=== PATIENT | female | born 1985 | race Caucasian/White ===

== ENCOUNTER 2019-11-23 10:14 | Inpatient (IN) | payer OTHER ==
--- NOTE | 2019-11-23 10:49 | BHS.RME ---
Substance Use & Tx History - Substance Use History Heroin Substance amount: 15 bags Frequency of use: Daily Substance route: Injection (ex: intravenous or skin popping) Date of Last Use: 11/22/19 - Last Treatment Date of last treatment: No detox hx Physical/Psych/Mental Status - Behavior General Behavior: Increased activity (restlessness, agitation) Eye Contact: Normal Other Behaviors: Mannerisms - Cooperativeness Cooperativeness: Cooperative - Thinking Thought Processes: Tight, Logical, Goal Directed Thought content: Future oriented - Physical Health Problems Is patient presently having any pain?: Yes Does patient presently have any injuries (include location): No Does patient currently have a fever: No Is patient : No COWS - Scale Resting Pulse: 0= [place] 80 or Below Sweatin= Chills/Flushing Restless Observation: 1= Difficult to Sit Still Pupil Size: 1= Pupils >than Normal Bone or Joint Aches: 1= Mild Discomfort Runny Nose/ Eye Tearin= Nasal Congestion GI Upset > 30mins: 1= Stomach Cramp Tremor Observation: 2= Slight Tremor Visible Yawning Observation: 0= None Anxiety or Irritability: 1=Feels Anxious/Irritable Goose Flesh Skin: 3=Piloerection COWS Score: 12
[2019-11-23] MEDS ORDERED: PNEUMOC 13-VAL CONJ-DIP CRM/PF 0.5 ML DISP.SYRIN IM ONE (11:02)
[2019-11-23 11:06] VITALS: BMI 43.2
--- NOTE | 2019-11-23 11:18 | HP ---
COWS - Scale Resting Pulse: 0= [place] 80 or Below Sweatin= Chills/Flushing Restless Observation: 1= Difficult to Sit Still Pupil Size: 1= Pupils >than Normal Bone or Joint Aches: 1= Mild Discomfort Runny Nose/ Eye Tearin= Nasal Congestion GI Upset > 30mins: 1= Stomach Cramp Tremor Observation: 2= Slight Tremor Visible Yawning Observation: 0= None Anxiety or Irritability: 1=Feels Anxious/Irritable Goose Flesh Skin: 3=Piloerection COWS Score: 12 CIWA Score - Admission Criteria [facility] Guidelines: Admission for Medically Managed Detox: Requires at least one of the followin. CIWA greater than 12 2. Seizures within the past 24 hours 3. Delirium tremens within the past 24 hours 4. Hallucinations within the past 24 hours 5. Acute intervention needed for co occurring medical disorder 6. Acute intervention needed for co occurring psychiatric disorder 7. Severe withdrawal that cannot be handled at a lower level of care (continued vomiting, continued diarrhea, abnormal vital signs) requiring intravenous medication and/or fluids 8. Admitting History and Physical - Smoking History Smoking history: Current every day smoker Have you smoked in the past 12 months: Yes Aproximately how many cigarettes per day: 20 Admission ROS [facility] Chief Complaint: I am here because I need detox from heroin. Allergies/Adverse Reactions: Allergies Allergy/AdvReac Type Severity Reaction Status Date / Time Penicillins Allergy Intermediate Rash Verified 11/23/19 11:16 History of Present Illness: Patient is a 34 yeart old woman who presents for detox from alcohol, this is her first time in detox. She reports overdose 2 years ago. Exam Limitations: No Limitations - Ebola screening Have you traveled outside of the country in the last 21 days: No Have you had contact with anyone from an Ebola affected area: No Have you been sick,other than usual withdrawal symptoms: No Do you have a fever: No - Review of Systems Constitutional: Chills, Loss of Appetite, Changes in sleep, Weight Stable EENT: reports: Nose Congestion Respiratory: reports: No Symptoms reported Cardiac: reports: No Symptoms Reported GI: reports: Nausea, Poor Appetite, Poor Fluid Intake : reports: No Symptoms Reported Musculoskeletal: reports: Back Pain, Muscle Pain, Muscle Weakness Integumentary: reports: No Symptoms Reported Neuro: reports: Tremors Endocrine: reports: No Symptoms Reported Psychiatric: reports: Anxious Other Systems: Reviewed and Negative Patient History - Patient Medical History Hx Anemia: No Hx Asthma: No Hx Chronic Obstructive Pulmonary Disease (COPD): No Hx Cancer: No Hx Cardiac Disorders: No Hx Congestive Heart Failure: No Hx Hypertension: No Hx Hypercholesterolemia: Yes (not on meds) Hx Pacemaker: No HX Cerebrovascular Accident: No Hx Seizures: No Hx Dementia: No Hx Diabetes: No Hx Gastrointestinal Disorders: No Hx Liver Disease: No Hx Genitourinary Disorders: No Hx Sexually Transmitted Disorders: No Hx Renal Disease (ESRD): No Hx Thyroid Disease: No Hx Human Immunodeficiency Virus (HIV): No Hx Hepatitis C: No Hx Depression: No Hx Suicide Attempt: No Hx Bipolar Disorder: No Hx Schizophrenia: No - Patient Surgical History Past Surgical History: Yes Hx Neurologic Surgery: No Hx Cataract Extraction: No Hx Cardiac Surgery: No Hx Lung Surgery: No Hx Breast Surgery: No Hx Breast Biopsy: No Hx Abdominal Surgery: No Hx Appendectomy: No Hx Cholecystectomy: No Hx Genitourinary Surgery: No Hx Section: No Hx Orthopedic Surgery: No Other Surgical History: TONSILLECTOMY- AT AGE 10/ CYST REMOVAL EFT FOOT Anesthesia Reaction: No - PPD History Previous Implant?: Yes Documented Results: Negative w/o proof Implanted On Prior R Admission?: No PPD to be Administered?: Yes - Reproductive History Patient is a Female of Child Bearing Age (11 -55 yrs old): Yes Last Menstrual Period: 10/29/19 Patient : No - Smoking Cessation Smoking history: Current every day smoker Have you smoked in the past 12 months: Yes Aproximately how many cigarettes per day: 20 Hx Chewing Tobacco Use: No Initiated information on smoking cessation: Yes 'Breaking Loose' booklet given: 11/23/19 - Substances abused Heroin Substance route: Injection Frequency: Daily Amount used: 10-15BAGS Age of first use: 27 Date of last use: 11/22/19 Admission Physical Exam BHS - Vital Signs Vital Signs: Vital Signs - 24 hr 11/23/19 11:03 Temperature 97.9 F Pulse Rate 62 Respiratory 19 Rate Blood Pressure 131/83 - Physical General Appearance: Yes: No Apparent Distress, Anxious HEENTM: Yes: Hearing grossly Normal, Normocephalic, Normal Voice, Pharynx Normal Respiratory: Yes: Chest Non-Tender, Lungs Clear, Normal Breath Sounds, No Respiratory Distress, No Accessory Muscle Use Neck: Yes: No masses,lesions,Nodules, Supple Breast: Yes: Breast Exam Deferred Cardiology: Yes: Regular Rhythm, Regular Rate, S1, S2 Abdominal: Yes: Normal Bowel Sounds, Non Tender, Soft Genitourinary: Yes: Within Normal Limits Back: Yes: Normal Inspection Musculoskeletal: Yes: full range of Motion, Gait Steady, Back pain, Muscle Pain Extremities: Yes: Tremors 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, Fully Oriented, Alert, Normal Mood/Affect, Normal Response Integumentary: Yes: Normal Color, Clammy, Track Gudino Lymphatic: Yes: Within Normal Limits - Diagnostic (1) Opioid dependence with withdrawal Current Visit: Yes Status: Acute (2) Nicotine dependence with withdrawal Current Visit: Yes Status: Acute Qualifiers: Nicotine product type: cigarettes Qualified Code(s): F17.213 - Nicotine dependence, cigarettes, with withdrawal Cleared for Admission [facility] - Detox or Rehab [facility] Level of Care: Medically Managed Detox Regimen/Protocol: Methadone Claeared for Rehab Admission: No Breathalyzer - Breathalyzer Breathalyzer: 0 Urine Drug Screen - Control Is test valid?: Yes - Results Drug screen NEGATIVE: No Urine drug screen results: FEN-Fentanyl, MOP-Opiates Inpatient Rehab Admission - Rehab Decision to Admit Inpatient rehab admission?: No
[2019-11-23] MEDS ORDERED: MAGNESIUM CITRATE 300 ML BOTTLE PO PRN (11:25)
[2019-11-23] MEDS ORDERED: IBUPROFEN 400 MG TABLET (FP) PO PRN (11:25)
[2019-11-23] MEDS ORDERED: MAGNESIUM HYDROX 2400MG/30ML ORAL SUSPENSION 30 ML CUP PO PRN (11:25)
[2019-11-23] MEDS ORDERED: BISMUTH SUBSALICYLATE 524 MG/30 ML UD PO PRN (11:25)
[2019-11-23] MEDS ORDERED: MENTHOL/PHENOL 1 EACH UD MM PRN (11:25)
[2019-11-23] MEDS ORDERED: cloNIDine HCL 0.1 MG TABLET PO PRN (11:25)
[2019-11-23] MEDS ORDERED: ACETAMINOPHEN 325 MG TABLET (FP) PO PRN ×2 (11:25)
[2019-11-23] MEDS ORDERED: NALOXONE HCL 0.4 MG/ML VIAL IM PRN (11:25)
[2019-11-23] MEDS ORDERED: MAG HYDROX/AL HYDROX/SIMETH 30 ML UNIT-DOSE CUP PO PRN (11:25)
[2019-11-23] MEDS ORDERED: NICOTINE POLACRILEX 2 MG GUM BUC PRN (11:25)
[2019-11-23] MEDS ORDERED: METHADONE HCL 10 MG TABLET (FOR DETOX USE ONLY) PO ONE (11:25)
--- NOTE | 2019-11-23 13:26 | EKG ---
Test Reason : Blood Pressure : / mmHG Vent. Rate : 061 BPM Atrial Rate : 061 BPM P-R Int : 176 ms QRS Dur : 094 ms QT Int : 414 ms P-R-T Axes : -16 -15 -12 degrees QTc Int : 416 ms NORMAL SINUS RHYTHM MINIMAL VOLTAGE CRITERIA FOR LVH, MAY BE NORMAL VARIANT BORDERLINE ECG NO PREVIOUS ECGS AVAILABLE Confirmed by Shanika Michele ([id number]) on 11/23/2019 1:26:34 PM Referred By: NICHOLE PADILLA Confirmed By:Shanika Michele
[2019-11-23] MEDS: THIAMINE HCL 100 MG TABLET (FP) PO SCH (22:24)
[2019-11-23] MEDS: MELATONIN 5 MG TABLETS PO SCH (22:24)
[2019-11-23] MEDS: METHOCARBAMOL 500 MG TABLET PO PRN (22:25)
[2019-11-24] MEDS ORDERED: METHADONE HCL 5 MG TABLET (FOR DETOX USE ONLY) PO ONE (10:00)
[2019-11-24] MEDS: PRENATAL VITAMINS W/ FOLIC ACID TABLET (FP) PO SCH (10:23)
[2019-11-24] MEDS: NICOTINE 14 MG/24 HOURS TOPICAL PATCH TD SCH (10:26)
--- NOTE | 2019-11-24 10:42 | PN ---
BHS COWS - Scale Resting Pulse: 0= [place] 80 or Below Sweatin= No chills or Flushing Restless Observation: 0= Sits Still Pupil Size: 1= Pupils >than Normal Bone or Joint Aches: 1= Mild Discomfort Runny Nose/ Eye Tearin= None GI Upset > 30mins: 1= Stomach Cramp Tremor Observation of Outstretched Hands: 2= Slight Tremor Visible Yawning Observation: 1= 1-2x During Session Anxiety or Irritability: 2=Irritable/Anxious Goose Flesh Skin: 3=Piloerection COWS Score: 11 BHS Progress Note (SOAP) Subjective: 34 years old female admitted on 11/23/19 for opiate withdrawal sx management treating with methadone detox regiment feeling ok today tolerated methadone well feeling tired prefers to resting in bed limited conversation with staff Objective: 11/24/19 10:44 Vital Signs - 24 hr 11/23/19 11/23/19 11/23/19 11:03 11:14 13:34 Temperature 97.9 F 97.9 F 97.3 F L Pulse Rate 62 62 61 Respiratory 19 19 18 Rate Blood Pressure 131/83 131/83 119/59 L O2 Sat by Pulse 98 Oximetry (%) 11/23/19 11/23/19 11/24/19 16:56 20:58 05:47 Temperature 97.1 F L 97.3 F L 97.5 F L Pulse Rate 61 60 59 L Respiratory 18 18 20 Rate Blood Pressure 111/59 L 105/65 119/73 O2 Sat by Pulse 98 100 Oximetry (%) 11/24/19 08:38 Temperature 98.1 F Pulse Rate 64 Respiratory 18 Rate Blood Pressure 108/63 O2 Sat by Pulse 100 Oximetry (%) Laboratory Tests 11/23/19 14:10 COVID-19 ([facility]) Not detected 11/24/19 10:44 lab noted Assessment: 11/24/19 10:44 opiate withdrawal Plan: methadone regiment
[2019-11-24 11:30] LABS: HEMATOCRIT 40.7 % (32.4-45.2); HEMOGLOBIN 13.6 GM/dL (10.7-15.3); MCH 29.7 pg (25.7-33.7); MCHC 33.4 g/dl (32.0-36.0); MEAN PLT VOLUME 8.2 fl (7.5-11.1); PLATELET COUNT 331 K/MM3 (134-434); RBC 4.57 M/mm3 (3.60-5.2); WHITE BLOOD COUNT 9.5 K/mm3 (4.0-10.0)
[2019-11-24 11:34] LABS: ALBUMIN 3.4 g/dl (3.4-5.0); BILIRUBIN,TOTAL 0.5 mg/dL (0.2-1); BLOOD UREA NITROGEN 6.9 mg/dL (7-18); CREATININE 0.7 mg/dL (0.55-1.3); POTASSIUM 4.1 mmol/L (3.5-5.1); TOT PROT 7.3 g/dl (6.4-8.2)
[2019-11-24] MEDS: METHOCARBAMOL 500 MG TABLET PO PRN (22:36)
[2019-11-24] MEDS: THIAMINE HCL 100 MG TABLET (FP) PO SCH (22:36)
[2019-11-24] MEDS: MELATONIN 5 MG TABLETS PO SCH (22:36)
[2019-11-25] MEDS: PRENATAL VITAMINS W/ FOLIC ACID TABLET (FP) PO SCH (09:56)
[2019-11-25] MEDS: NICOTINE 14 MG/24 HOURS TOPICAL PATCH TD SCH (09:56)
[2019-11-25] MEDS ORDERED: METHADONE HCL 10 MG TABLET (FOR DETOX USE ONLY) PO ONE (10:00)
[2019-11-25] MEDS: METHOCARBAMOL 500 MG TABLET PO PRN ×2 (12:22→22:25)
--- NOTE | 2019-11-25 13:27 | PN ---
BHS COWS - Scale Resting Pulse: 0= [place] 80 or Below Sweatin= No chills or Flushing Restless Observation: 0= Sits Still Pupil Size: 0= Normal to Room Light Bone or Joint Aches: 1= Mild Discomfort Runny Nose/ Eye Tearin= None GI Upset > 30mins: 1= Stomach Cramp Tremor Observation of Outstretched Hands: 2= Slight Tremor Visible Yawning Observation: 0= None Anxiety or Irritability: 2=Irritable/Anxious Goose Flesh Skin: 0=Smooth Skin COWS Score: 6 BHS Progress Note (SOAP) Subjective: 34 years old female admitted on 11/24/19 for opiate withdrawal sx management treating with methadone detox regiment feeling better today ate breakfast and lunch in room resting in bed discussing medication assisted treatment program and picking up narcan from pharmacy Objective: 11/25/19 13:32 Vital Signs - 24 hr 11/24/19 11/24/19 11/25/19 16:36 20:56 07:40 Temperature 97.1 F L 97.3 F L 97.3 F L Pulse Rate 66 68 56 L Respiratory 18 16 16 Rate Blood Pressure 103/65 105/70 96/57 L O2 Sat by Pulse 100 99 Oximetry (%) 11/25/19 08:55 Temperature 97.1 F L Pulse Rate 54 L Respiratory 16 Rate Blood Pressure 104/68 O2 Sat by Pulse Oximetry (%) Laboratory Tests 11/23/19 11/24/19 11/24/19 14:10 06:50 06:50 WBC RBC Hgb Hct MCV MCH MCHC RDW Plt Count MPV Sodium Potassium Chloride Carbon Dioxide Anion Gap BUN Creatinine Est GFR (CKD-EPI)AfAm Est GFR (CKD-EPI)NonAf Random Glucose Calcium Total Bilirubin AST ALT Alkaline Phosphatase Total Protein Albumin Syphilis Serology Non-reactive COVID-19 ([facility]) Not detected HIV Ag/Ab Combo Qual Negative 11/24/19 11/24/19 06:50 06:50 WBC 9.5 RBC 4.57 Hgb 13.6 Hct 40.7 MCV 89.0 MCH 29.7 MCHC 33.4 RDW 13.0 Plt Count 331 MPV 8.2 Sodium 139 Potassium 4.1 Chloride 106 Carbon Dioxide 27 Anion Gap 6 L BUN 6.9 L Creatinine 0.7 Est GFR (CKD-EPI)AfAm 132.87 Est GFR (CKD-EPI)NonAf 114.64 Random Glucose 102 Calcium 9.0 Total Bilirubin 0.5 AST 28 ALT 50 Alkaline Phosphatase 89 Total Protein 7.3 Albumin 3.4 Syphilis Serology COVID-19 ([facility]) HIV Ag/Ab Combo Qual lab noted Assessment: 11/25/19 13:33 opiate withdrawal Plan: methadone regiment
[2019-11-25] MEDS: MELATONIN 5 MG TABLETS PO SCH (22:22)
[2019-11-25] MEDS: THIAMINE HCL 100 MG TABLET (FP) PO SCH (22:22)
[2019-11-26] MEDS ORDERED: METHADONE HCL 5 MG TABLET (FOR DETOX USE ONLY) PO ONE (06:00)
[2019-11-26] MEDS: METHOCARBAMOL 500 MG TABLET PO PRN (06:09)
[2019-11-26 09:16] VITALS: BP 124/68; PULSE 70; TEMP 97.3
--- NOTE | 2019-11-26 09:54 | DS ---
[facility] Detox Discharge Summary Admission Date: 11/23/19 Discharge Date: 11/26/19 - History Present History: Opioid Dependence Additional Comments: 34 years old female admitted on 11/24/19 for opiate withdrawal sx management treated with methadone detox regiment ms rubio has completed the methadone regiment and is tolerated well General Appearance: Yes: No Apparent Distress, Anxious HEENTM: Yes: Hearing grossly Normal, Normocephalic, Normal Voice, Pharynx Normal Respiratory: Yes: Chest Non-Tender, Lungs Clear, Normal Breath Sounds, No Respiratory Distress, No Accessory Muscle Use Neck: Yes: No masses,lesions,Nodules, Supple Breast: Yes: Breast Exam Deferred Cardiology: Yes: Regular Rhythm, Regular Rate, S1, S2 Abdominal: Yes: Normal Bowel Sounds, Non Tender, Soft Genitourinary: Yes: Within Normal Limits Back: Yes: Normal Inspection Musculoskeletal: Yes: full range of Motion, Gait Steady, Back pain, Muscle Pain Extremities: Yes: Tremors 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, Fully Oriented, Alert, Normal Mood/Affect, Normal Response Integumentary: Yes: Normal Color, Clammy, Track Gudino Lymphatic: Yes: Within Normal Limits Pertinent Past History: time for discharge 35 minutes encourage 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 assisted treatment program 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 - Physical Exam Results Vital Signs: Vital Signs Temperature 97.3 F L 11/26/19 08:46 Pulse Rate 70 11/26/19 08:46 Respiratory Rate 20 11/26/19 08:46 Blood Pressure 124/68 11/26/19 08:46 O2 Sat by Pulse Oximetry (%) 100 11/26/19 06:28 Pertinent Admission Physical Exam Findings: opiate withdrawal Vital Signs - 24 hr 11/25/19 11/25/19 11/25/19 13:00 16:34 20:21 Temperature 97.1 F L 97.8 F 97.5 F L Pulse Rate 62 63 76 Respiratory 18 18 18 Rate Blood Pressure 114/73 102/71 113/67 O2 Sat by Pulse 99 99 97 Oximetry (%) 11/26/19 11/26/19 06:28 08:46 Temperature 97.1 F L 97.3 F L Pulse Rate 60 70 Respiratory 18 20 Rate Blood Pressure 129/78 124/68 O2 Sat by Pulse 100 Oximetry (%) Laboratory Tests 11/23/19 11/24/19 11/24/19 14:10 06:50 06:50 WBC RBC Hgb Hct MCV MCH MCHC RDW Plt Count MPV Sodium Potassium Chloride Carbon Dioxide Anion Gap BUN Creatinine Est GFR (CKD-EPI)AfAm Est GFR (CKD-EPI)NonAf Random Glucose Calcium Total Bilirubin AST ALT Alkaline Phosphatase Total Protein Albumin Syphilis Serology Non-reactive COVID-19 ([facility]) Not detected HIV Ag/Ab Combo Qual Negative 11/24/19 11/24/19 06:50 06:50 WBC 9.5 RBC 4.57 Hgb 13.6 Hct 40.7 MCV 89.0 MCH 29.7 MCHC 33.4 RDW 13.0 Plt Count 331 MPV 8.2 Sodium 139 Potassium 4.1 Chloride 106 Carbon Dioxide 27 Anion Gap 6 L BUN 6.9 L Creatinine 0.7 Est GFR (CKD-EPI)AfAm 132.87 Est GFR (CKD-EPI)NonAf 114.64 Random Glucose 102 Calcium 9.0 Total Bilirubin 0.5 AST 28 ALT 50 Alkaline Phosphatase 89 Total Protein 7.3 Albumin 3.4 Syphilis Serology COVID-19 ([facility]) HIV Ag/Ab Combo Qual lab noted - Treatment Hospital Course: Detox Protocol Followed, Detoxed Safely, Responded well, Discharged Condition Good, Rehab Referral Accepted Patient has Accepted a Re[facility] Referral [facility]: [facility] - Medication Discharge Medications: Ambulatory Orders Naloxone HCl [Narcan] 4 mg NS ASDIR PRN #1 spray 11/24/19 - Diagnosis (1) Nicotine dependence with withdrawal Status: Acute Qualifiers: Nicotine product type: cigarettes Qualified Code(s): F17.213 - Nicotine dependence, cigarettes, with withdrawal (2) Opioid dependence with withdrawal Status: Acute - AMA Did Patient Leave Against Medical Advice: No COWS (PN) - Opiate Withdrawal Resting Pulse: 0= [place] 80 or Below Sweatin= No chills or Flushing Restless Observation: 0= Sits Still Pupil Size: 0= Normal to Room Light Bone or Joint Aches: 1= Mild Discomfort Runny Nose/ Eye Tearin= None GI Upset > 30mins: 0= None Tremor Observation of Outstretched Hands: 1= Tremor [place], Not Seen Yawning Observation: 0= None Anxiety or Irritability: 1=Feels Anxious/Irritable Goose Flesh Skin: 0=Smooth Skin COWS Score: 3
== END 2019-11-26 09:25 | disposition home or self-care (01) | DRG 773 ==
LOC: YASAS 10:14 → Y3N 11:42
PROVIDERS: ADMIT Allergy & Immunology; ATTEND Allergy & Immunology
PROC: HZ2ZZZZ Detoxification Services for Substance Abuse Treatment (ICD-10-PCS; principal; 2019-11-23)
DX: F11.23 Opioid dependence with withdrawal (principal); F17.213 Nicotine dependence, cigarettes, with withdrawal; Z88.0 Allergy status to penicillin
CPT/HCPCS: 36415; 80053; 81025; 85027; 86780; 87389; 90670; 93005; 93010; J0735; U0003

== ENCOUNTER 2022-04-13 09:44 | Inpatient (IN) | payer OTHER ==
[2022-04-13 10:29] VITALS: BMI 44.9
[2022-04-13] MEDS ORDERED: NICOTINE POLACRILEX 2 MG GUM BUC PRN (12:16)
[2022-04-13] MEDS ORDERED: IBUPROFEN 600 MG TABLET (FP) PO PRN (12:16)
[2022-04-13] MEDS ORDERED: MAG HYDROX/AL HYDROX/SIMETH 30 ML UNIT-DOSE CUP PO PRN (12:16)
[2022-04-13] MEDS ORDERED: NICOTINE 14 MG/24 HOURS TOPICAL PATCH TD PRN (12:16)
[2022-04-13] MEDS ORDERED: POLYETHYLENE GLYCOL (HEALTHYLAX) 3350 17 GM PACKET PO PRN (12:16)
[2022-04-13] MEDS ORDERED: BENZOCAINE/MENTHOL (CHLORASEPTIC ) LOZENGE MM PRN (12:16)
[2022-04-13] MEDS ORDERED: NALOXONE HCL (KLOXXADO) 8 MG SPRAY NS PRN (12:16)
[2022-04-13] MEDS ORDERED: BISMUTH SUBSALICYLATE 262 MG/15 ML BTL PO PRN (12:16)
[2022-04-13] MEDS ORDERED: ONDANSETRON *ODT* 4 MG TABLET SL PRN (12:16)
[2022-04-13] MEDS ORDERED: cloNIDine HCL 0.1 MG TABLET PO PRN (12:16)
[2022-04-13] MEDS ORDERED: DICYCLOMINE HCL 10 MG CAPSULE PO PRN (12:16)
[2022-04-13] MEDS ORDERED: LOPERAMIDE HCL 2 MG CAPSULE PO PRN (12:16)
[2022-04-13] MEDS ORDERED: IBUPROFEN 400 MG TABLET (FP) PO PRN (12:16)
[2022-04-13] MEDS ORDERED: MAGNESIUM HYDROX 2400MG/30ML ORAL SUSPENSION 30 ML CUP PO PRN (12:16)
[2022-04-13] MEDS ORDERED: ACETAMINOPHEN 325 MG TABLET (FP) PO PRN ×2 (12:16)
[2022-04-13] MEDS ORDERED: methaDONE HCL 10 MG TABLET (FOR DETOX USE ONLY) PO ONE (12:16)
[2022-04-13] MEDS ORDERED: methaDONE HCL 10 MG TABLET (FOR DETOX USE ONLY) ONE (13:24)
[2022-04-13] MEDS: NICOTINE 10 MG CARTRIDGE (INHALER) IH PRN (14:08)
[2022-04-13 14:46] LABS: HEMATOCRIT 39.1 % (32.4-45.2); MCH 29.5 pg (25.7-33.7); MCHC 33.1 g/dl (32.0-36.0); MEAN CELL VOLUME 88.9 fl (80-96); MEAN PLT VOLUME 7.5 fl (7.5-11.1); PLATELET COUNT 358 10^3/uL (134-434)
[2022-04-13 14:53] LABS: ALBUMIN 3.6 g/dl (3.4-5.0); BLOOD UREA NITROGEN 14.6 mg/dL (7-18); CALCIUM 8.5 mg/dL (8.5-10.1)
[2022-04-13 14:56] LABS: CREATININE 0.7 mg/dL (0.55-1.3)
[2022-04-13 14:58] LABS: BILIRUBIN,TOTAL 0.4 mg/dL (0.2-1); TOT PROT 7.4 g/dl (6.4-8.2)
[2022-04-13 18:33] LABS: HIV INTERPRETATION NEGATIVE (NEGATIVE)
[2022-04-13] MEDS: hydrOXYzine PAMOATE 25 MG CAPSULE (FP) PO PRN (22:16)
[2022-04-13] MEDS: MELATONIN 5 MG TABLETS PO SCH (22:16)
[2022-04-13] MEDS: METHOCARBAMOL 500 MG TABLET PO PRN (22:16)
[2022-04-13] MEDS: THIAMINE HCL 100 MG TABLET (FP) PO SCH (22:16)
[2022-04-14] MEDS: NICOTINE 10 MG CARTRIDGE (INHALER) IH PRN (09:52)
[2022-04-14] MEDS: PRENATAL VITAMINS W/ FOLIC ACID TABLET (FP) PO SCH (09:54)
[2022-04-14] MEDS: MELATONIN 5 MG TABLETS PO SCH (22:12)
[2022-04-14] MEDS: THIAMINE HCL 100 MG TABLET (FP) PO SCH (22:13)
[2022-04-14] MEDS: hydrOXYzine PAMOATE 25 MG CAPSULE (FP) PO PRN (22:13)
[2022-04-15] MEDS ORDERED: methaDONE HCL 10 MG TABLET (FOR DETOX USE ONLY) PO ONE (10:00)
[2022-04-15] MEDS: PRENATAL VITAMINS W/ FOLIC ACID TABLET (FP) PO SCH (10:07)
[2022-04-15] MEDS: NICOTINE 10 MG CARTRIDGE (INHALER) IH PRN ×2 (10:09→22:27)
[2022-04-15] MEDS: THIAMINE HCL 100 MG TABLET (FP) PO SCH (22:27)
[2022-04-15] MEDS: MELATONIN 5 MG TABLETS PO SCH (22:27)
[2022-04-15] MEDS: METHOCARBAMOL 500 MG TABLET PO PRN (22:28)
[2022-04-16 09:25] VITALS: BP 154/78; PULSE 80; RESP 17; TEMP 97.3
[2022-04-16] MEDS: PRENATAL VITAMINS W/ FOLIC ACID TABLET (FP) PO SCH (11:12)
[2022-04-17] MEDS ORDERED: methaDONE HCL 10 MG TABLET (FOR DETOX USE ONLY) PO ONE (10:00)
== END 2022-04-16 11:40 | disposition left against medical advice (07) | DRG 770 ==
LOC: YASAS 09:44 → Y6N 12:56
PROVIDERS: ADMIT Allergy & Immunology; ATTEND Surgery
PROC: HZ2ZZZZ Detoxification Services for Substance Abuse Treatment (ICD-10-PCS; principal; 2022-04-13)
DX: F11.23 Opioid dependence with withdrawal (principal); F17.213 Nicotine dependence, cigarettes, with withdrawal; Z88.0 Allergy status to penicillin
CPT/HCPCS: 36415; 80053; 81025; 85027; 86780; 87389; 87811; C9803-CS; U0003; U0005

== ENCOUNTER 2023-10-02 08:13 | Inpatient (IN) | payer OTHER ==
[2023-10-02 09:17] VITALS: BMI 47.1
[2023-10-02] MEDS ORDERED: MAG HYDROX/AL HYDROX/SIMETH 30 ML UNIT-DOSE CUP PO PRN (09:36)
[2023-10-02] MEDS ORDERED: IBUPROFEN 400 MG TABLET (FP) PO PRN (09:36)
[2023-10-02] MEDS ORDERED: LOPERAMIDE HCL 2 MG CAPSULE PO PRN (09:36)
[2023-10-02] MEDS ORDERED: BENZONATATE 200 MG CAPSULE PO PRN (09:36)
[2023-10-02] MEDS ORDERED: guaiFENesin 600 MG TABLET.ER (FP) PO PRN (09:36)
[2023-10-02] MEDS ORDERED: NALOXONE (NARCAN) HCL 4 MG/0.1 ML SPRAY NS PRN (09:36)
[2023-10-02] MEDS ORDERED: BENZOCAINE/MENTHOL (CHLORASEPTIC ) LOZENGE MM PRN (09:36)
[2023-10-02] MEDS ORDERED: ONDANSETRON *ODT* 4 MG TABLET SL PRN (09:36)
[2023-10-02] MEDS ORDERED: POLYETHYLENE GLYCOL (HEALTHYLAX) 3350 17 GM PACKET PO PRN (09:36)
[2023-10-02] MEDS ORDERED: IBUPROFEN 600 MG TABLET (FP) PO PRN (09:36)
[2023-10-02] MEDS ORDERED: MAGNESIUM HYDROX 2400MG/30ML ORAL SUSPENSION 30 ML CUP PO PRN (09:36)
[2023-10-02] MEDS ORDERED: P-EPHED 60MG/TRIPROLIDI 2.5MG TABLET PO PRN (09:36)
[2023-10-02] MEDS ORDERED: BISMUTH SUBSALICYLATE 262 MG/15 ML BTL PO PRN (09:36)
[2023-10-02] MEDS ORDERED: NALOXONE HCL 0.4 MG/ML VIAL IM PRN (09:36)
[2023-10-02] MEDS ORDERED: ACETAMINOPHEN 325 MG TABLET (FP) PO PRN (09:36)
[2023-10-02] MEDS ORDERED: DICYCLOMINE HCL 10 MG CAPSULE PO PRN (09:36)
[2023-10-02] MEDS ORDERED: PRENATAL VITAMINS W/ FOLIC ACID TABLET (FP) PO ONE (10:02)
[2023-10-02] MEDS: PRENATAL VITAMINS W/ FOLIC ACID TABLET (FP) PO SCH (10:03)
[2023-10-02] MEDS: NICOTINE POLACRILEX 2 MG LOZENGE BC PRN (11:53)
[2023-10-02] MEDS: NICOTINE POLACRILEX 2 MG GUM BUC PRN (19:56)
[2023-10-02] MEDS: hydrOXYzine PAMOATE 25 MG CAPSULE (FP) PO PRN (20:08)
[2023-10-02] MEDS: METHOCARBAMOL 500 MG TABLET PO PRN (20:08)
[2023-10-02] MEDS: MELATONIN 5 MG TABLETS PO SCH (22:28)
[2023-10-02] MEDS: THIAMINE 100 MG TABLET PO SCH (22:28)
[2023-10-03] MEDS: methaDONE HCL 10 MG TABLET (FOR DETOX USE ONLY) PO ONE (10:35)
[2023-10-03 12:28] LABS: HEMOGLOBIN 12.9 GM/dL (10.7-15.3); MCH 30.3 pg (25.7-33.7); MCHC 34.7 g/dl (32.0-36.0); MEAN CELL VOLUME 87.3 fl (80-96); MEAN PLT VOLUME 7.4 fl (7.5-11.1); PLATELET COUNT 263 10^3/uL (134-434); RBC 4.24 M/mm3 (3.60-5.2); RDW 12.8 % (11.6-15.6); WHITE BLOOD COUNT 4.3 K/mm3 (4.0-10.0)
[2023-10-03 12:57] LABS: CALCIUM 8.6 mg/dL (8.5-10.1); POTASSIUM 4.2 mmol/L (3.5-5.1)
[2023-10-03 12:59] LABS: ALBUMIN 3.6 g/dl (3.4-5.0); BLOOD UREA NITROGEN 10.4 mg/dL (7-18)
[2023-10-03 13:02] LABS: CREATININE 0.8 mg/dL (0.55-1.3)
[2023-10-03 13:04] LABS: BILIRUBIN,TOTAL 0.2 mg/dL (0.2-1); TOT PROT 6.9 g/dl (6.4-8.2)
[2023-10-03] MEDS: cloNIDine HCL 0.1 MG TABLET PO PRN (22:33)
[2023-10-04] MEDS: NICOTINE 21 MG/24 HOURS TOPICAL PATCH TD PRN (12:51)
[2023-10-04] MEDS: NICOTINE POLACRILEX 4 MG GUM BUC PRN (20:28)
[2023-10-05] MEDS: methaDONE HCL 10 MG TABLET (FOR DETOX USE ONLY) PO ONE (09:51)
[2023-10-07] MEDS: methaDONE HCL 10 MG TABLET (FOR DETOX USE ONLY) PO ONE (09:27)
[2023-10-08 07:34] VITALS: RESP 16
[2023-10-08 09:39] VITALS: BP 148/67; PULSE 70; TEMP 97.6
== END 2023-10-08 10:40 | disposition home or self-care (01) | DRG 773 ==
LOC: YASAS 08:13 → Y6N 09:53 → UNDOADMIN 09:53 → Y6N 10-03 10:20 → UNDOADMIN 10-03 10:20
PROVIDERS: ADMIT Allergy & Immunology; ATTEND Surgery
PROC: HZ2ZZZZ Detoxification Services for Substance Abuse Treatment (ICD-10-PCS; principal; 2023-10-02)
DX: F11.23 Opioid dependence with withdrawal (principal); F17.213 Nicotine dependence, cigarettes, with withdrawal; Z88.0 Allergy status to penicillin
CPT/HCPCS: 36415; 80053; 80305; 80307; 81025; 85027; 86780; 93005; 93010